=== PATIENT | male | born 1950 | race Caucasian/White ===

== ENCOUNTER 2018-04-29 13:12 | Emergency (ER) | payer MEDICARE, OTHER ==
[~2018-04-29] VITALS: Ht 185.4 cm; Wt 87.2 kg
[2018-04-29 13:59] LABS: BASOPHILS # (AUTO) 0.04 x10^3/uL (0-0.1); BASOPHILS % (AUTO) 1 % (0-1); EOSINOPHILS # (AUTO) 0.01 x10^3/uL (0-0.4); EOSINOPHILS % (AUTO) 0 % (1-7); LYMPHOCYTES # (AUTO) 1.43 x10^3/uL (1-3.4); LYMPHOCYTES % (AUTO) 18 % (22-44); MD NO; MEAN CORPUSCULAR HEMOGLOBIN 32.8 pg (27.5-34.5); MEAN CORPUSCULAR HGB CONC 33.3 g/dL (33.2-36.2); MEAN CORPUSCULAR VOLUME 98.6 fL (81-97); MEAN PLATELET VOLUME 6.9 fL (7.4-10.4); MONOCYTES # (AUTO) 0.75 x10^3/uL (0.2-0.8); MONOCYTES % (AUTO) 10 % (2-9); NEUTROPHILS # (AUTO) 5.59 x10^3/uL (1.8-6.8); NEUTROPHILS % (AUTO) 72 % (42-75); PLATELET COUNT 200 x10^3/uL (130-400); RED BLOOD COUNT 4.45 x10^6/uL (4.38-5.82); RED CELL DISTRIBUTION WIDTH 14.1 % (9.4-14.8)
[2018-04-29 14:12] LABS: ALBUMIN 4.1 g/dL (3.4-5.0); ANION GAP 14 mmol/L (5-15); CALCIUM 10.4 mg/dL (8.5-10.1); CHLORIDE 94 mmol/L (98-107); CREATININE 1.55 mg/dL (0.7-1.3)
[2018-04-29 14:16] LABS: TROPONIN I < 0.015 ng/mL (0.000-0.045)
[2018-04-29] MEDS ORDERED: SODIUM CHLORIDE 0.9%, 500ML IVBOLUS ONE (15:00)
[2018-04-29] MEDS ORDERED: OMNIPAQUE 350 MG/ML, 100ML BOTTLE ONE (15:00)
[2018-04-29] MEDS ORDERED: APIXABAN 5 MG TABLET ONE (15:24)
[2018-04-29 15:25] VITALS: BP 122/65
[2018-04-29] MEDS ORDERED: APIXABAN 5 MG TABLET PO ONE (15:30)
== END 2018-04-29 16:07 | disposition home or self-care (01) ==
LOC: ED 13:45
DX: I26.99 Other pulmonary embolism without acute cor pulmonale (principal); E86.0 Dehydration
CPT/HCPCS: 36415; 71275; 80048; 82040; 83880; 84484; 85025; 93005; 96360; 99285; J7040; Q9967